=== PATIENT | female | born 1960 | race Caucasian/White ===

== ENCOUNTER 2021-05-16 11:04 | Outpatient (CLI) | payer MEDICARE ==
[2021-05-17 00:07] LABS: SARS-CoV-2 PCR by NAA Not Detected (NotDetected)
== END 2021-05-16 11:05 | disposition home or self-care (01) ==
LOC: CSHLAB 11:04
PROVIDERS: ATTEND Specialist
DX: Z20.822 Contact with and (suspected) exposure to COVID-19 (principal)
CPT/HCPCS: U0003; U0005

== ENCOUNTER 2022-09-15 15:14 | Emergency (ER) | payer MEDICARE ==
[2022-09-15] MEDS ORDERED: Morphine 10 MG/ML VIAL ONE (15:58)
== END 2022-09-15 17:45 | disposition home or self-care (01) ==
LOC: CSHERS 15:14
DX: S39.012A Strain of muscle, fascia and tendon of lower back, initial encounter (principal); S09.90XA Unspecified injury of head, initial encounter; M25.562 Pain in left knee; I10 Essential (primary) hypertension; W18.00XA Striking against unspecified object with subsequent fall, initial encounter
CPT/HCPCS: 70450; 72125; 72131; 72192; 96372; J2270